=== PATIENT | female | born 1970 | race Caucasian/White ===

== ENCOUNTER 2018-01-24 09:54 | Day surgery (SDC) | payer OTHER ==
[~2018-01-24 09:54] MED LIST: AMOX1TAB12 PO; CIPRO500 MG; CIPRODEX OTIC7.5 ML; CLARITIN10 M1; PROBIOTIC & AC1 EACH PO; RELAGESIC 5001 EACH
== END 2018-01-24 15:40 | disposition home or self-care (01) ==
LOC: AMB-ENDOS 09:54
DX: K57.30 Diverticulosis of large intestine without perforation or abscess without bleeding (principal); D12.2 Benign neoplasm of ascending colon; K62.1 Rectal polyp

== ENCOUNTER 2019-09-21 13:10 | Emergency (ER) | payer OTHER ==
[~2019-09-21] VITALS: Ht 147.3 cm; Wt 63.5 kg
== END 2019-09-21 19:22 | disposition home or self-care (01) ==
LOC: ER 13:10
DX: K57.92 Diverticulitis of intestine, part unspecified, without perforation or abscess without bleeding (principal); N83.291 Other ovarian cyst, right side

== ENCOUNTER 2019-09-30 20:48 | Inpatient (IN) | payer OTHER ==
[~2019-09-30] VITALS: Ht 147.3 cm; Wt 63.5 kg
[2019-10-05] MEDS ORDERED: INTESTINEX680 M1 PO (08:01)
[2019-10-05] MEDS ORDERED: AMOX-CLAV 875-1 EACH PO (08:01)
[2019-10-05] MEDS ORDERED: PROTONIX40 MG PO (08:02)
== END 2019-10-05 10:57 | disposition home or self-care (01) | DRG 392 ==
LOC: ER 20:48 → MEDJ 10-01 08:00
PROVIDERS: ADMIT Internal Medicine
DX: K57.32 Diverticulitis of large intestine without perforation or abscess without bleeding (principal)

== ENCOUNTER 2021-08-11 08:44 | Day surgery (SDC) | payer OTHER ==
[~2021-08-11 08:44] MED LIST changes: +AMOX-CLAV 875-1 EACH PO; +INTESTINEX680 M1 PO; +PROTONIX40 MG PO
== END 2021-08-11 13:35 | disposition home or self-care (01) ==
LOC: AMB-ENDOS 08:44
PROVIDERS: ATTEND Surgery
DX: K57.32 Diverticulitis of large intestine without perforation or abscess without bleeding (principal); Z20.822 Contact with and (suspected) exposure to COVID-19

== ENCOUNTER 2023-09-06 13:10 | Emergency (ER) | payer OTHER ==
[~2023-09-06] VITALS: Ht 147.3 cm; Wt 59.0 kg
[2023-09-06] MEDS ORDERED: CHILDREN'S ASPI81 MG PO (13:57)
[2023-09-06] MEDS ORDERED: KAPSPARGO SPRIN25 MG PO (13:57)
[2023-09-06] MEDS ORDERED: CRESTOR10 MG PO (13:57)
[2023-09-06 16:31] LABS: MEAN CELL VOLUME 88.2 fL (80.00-100.00); MEAN CORPUSCULAR HEMOGLOBIN 30.6 pg (27.00-32.0); MEAN CORPUSCULAR HGB CONC 34.7 g/dl (32.0-36.0); PLATELET COUNT 198 K/uL (150-450); RED BLOOD COUNT 5.22 M/uL (4.00-6.00); RED CELL DISTRIBUTION WIDTH 13.1 % (11.5-14.5)
[2023-09-06 16:32] LABS: PH,URINE 6.5 (5.0-8.0); URINE APPEARANCE Clear; URINE BACTERIA 317.4 uL (0.0-1933); URINE BILIRRUBIN Negative (NEGATIVE); URINE BLOOD Negative; URINE COLOR Yellow; URINE EPITHELIAL CELLS 18.5 uL (0.0-38.8); URINE GLUCOSE Negative (NEGATIVE); URINE LEUKOCYTE Negative; URINE NITRATE Negative; URINE PROTEIN Negative (NEGATIVE); URINE RBC 3.8 uL (0.0-20.8); URINE UROBILINOGEN 0.2 E.U./dl; URINE WBC 2.1 uL (0.0-23.2)
[2023-09-06 17:41] LABS: CALCIUM 9.2 mg/dL (8.5-10.1); CREATININE SERUM 0.63 mg/dL (0.55-1.02); GFR 98.47; POTASSIUM 4.27 mEq/L (3.5-5.1)
[2023-09-06] MEDS ORDERED: DICLOFENAC SODI75 MG PO (20:33)
[2023-09-06] MEDS ORDERED: PEPCID AC20 MG PO (20:33)
== END 2023-09-06 21:01 | disposition home or self-care (01) ==
LOC: ER 13:11
PROVIDERS: General Practice; Nurse Practitioner Family
DX: R10.12 Left upper quadrant pain (principal)

== ENCOUNTER 2024-01-02 19:38 | Emergency (ER) | payer OTHER ==
[~2024-01-02] VITALS: Ht 147.3 cm; Wt 59.0 kg
[~2024-01-02 19:38] MED LIST changes: +CHILDREN'S ASPI81 MG PO; +CRESTOR10 MG PO; +DICLOFENAC SODI75 MG PO; +KAPSPARGO SPRIN25 MG PO; +PEPCID AC20 MG PO
[2024-01-02] MEDS ORDERED: CANDESARTAN CILE4 MG PO (20:07)
[2024-01-02] MEDS ORDERED: CIPROFLOXACIN IN 5 % DEXTROSE 400 MG/200 ML PIGGYBAG IV ONE (20:45)
[2024-01-02] MEDS ORDERED: FAMOTIDINE/PF 20 MG/2 ML VIAL IV PUSH ONE (20:45)
[2024-01-02] MEDS ORDERED: KETOROLAC TROMETHAMINE 15 MG VIAL IV ONE (20:45)
[2024-01-02] MEDS ORDERED: 0.9 % SODIUM CHLORIDE 1,000 ML IV ONE (20:45)
[2024-01-02] MEDS ORDERED: HYOSCYAMINE SULFATE 0.125 MG TAB.SUBL SL ONE (20:45)
[2024-01-02 21:15] LABS: URINE APPEARANCE Clear; URINE BILIRRUBIN Negative (NEGATIVE); URINE BLOOD Negative; URINE COLOR Yellow; URINE GLUCOSE Negative (NEGATIVE); URINE LEUKOCYTE Negative; URINE NITRATE Negative; URINE PROTEIN Negative (NEGATIVE); URINE UROBILINOGEN 0.2 E.U./dl
[2024-01-02 21:16] LABS: HEMATOCRIT 44.5 % (36.0-45.00); HEMOGLOBIN 15.3 g/dL (12.0-15.00); MEAN CELL VOLUME 87.2 fL (80.00-100.00); MEAN CORPUSCULAR HGB CONC 34.4 g/dl (32.0-36.0); PLATELET COUNT 187 K/uL (150-450); RED BLOOD COUNT 5.11 M/uL (4.00-6.00); RED CELL DISTRIBUTION WIDTH 13.1 % (11.5-14.5)
[2024-01-02 21:19] LABS: URINE BACTERIA 185.1 uL (0.0-1933); URINE EPITHELIAL CELLS 8.6 uL (0.0-38.8); URINE RBC 7.1 uL (0.0-20.8); URINE WBC 3.3 uL (0.0-23.2)
[2024-01-02 21:49] LABS: BILIRUBIN TOTAL 0.72 mg/dL (0.3-1.2); CALCIUM 9.6 mg/dL (8.5-10.1); CREATININE SERUM 0.65 mg/dL (0.55-1.02); GFR 94.99; POTASSIUM 4.45 mEq/L (3.5-5.1)
[2024-01-02 21:52] LABS: C-REACTIVE PROTEIN 6.18 MG/DL (0.00-0.29)
[2024-01-02] MEDS ORDERED: METRONIDAZOLE/SODIUM CHLORIDE 500 MG/100 ML PIGGYBACK IV ONE (22:45)
== END 2024-01-02 23:35 | disposition home or self-care (01) ==
LOC: ER 19:38
PROVIDERS: General Practice
DX: K57.92 Diverticulitis of intestine, part unspecified, without perforation or abscess without bleeding (principal); R10.9 Unspecified abdominal pain; I10 Essential (primary) hypertension
CPT/HCPCS: 36415; 74177; Q9965